=== PATIENT | male | born 1950 | race Caucasian/White ===

== ENCOUNTER 2016-12-24 08:31 | Emergency (ER) | payer OTHER, BC ==
[~2016-12-24] VITALS: Ht 182.9 cm; Wt 101.2 kg
[~2016-12-24 08:31] MED LIST: ASPIR-LOW81 MG PO; B COMPLETE1 EACH PO; BENAZEPRIL HCL10 MG; BENAZEPRIL HCL10 MG PO; CALCITRIOL0.25 MCG; CALCIUM ACETAT667 M2 PO; CARVEDILOL12.5 MG PO; CARVEDILOL25 MG PO; CYANOCOBALAMIN 500 MCG; EPOGEN,PRO2000 UNITS SC; EPOGEN,PRO20000 UNIT SQ; ERGOCALCIF50000 UNIT PO; KAYEXALATE15 GM/60 M PO; LABETALOL HCL200 MG PO; LOPERAMIDE2 M1 PO; MAG-OXIDE400 MG PO; MAGNESIUM400 M1 PO; METHYLDOPA500 MG PO; METOPROLOL TART50 MG; MINOXIDIL2.5 MG PO; NEURONTIN600 MG PO; NIFEDICAL XL30 MG PO; NIFEDIPINE ER60 MG PO; NORCO 5/3251 TABLET PO; NORVASC5 MG PO; PANTOPRAZOLE SO40 MG; PANTOPRAZOLE SO40 MG PO; PRAVASTATIN SOD40 MG; PROTONIX40 MG PO; RENAL VITAMIN0.8 MG PO; RESTORIL15 MG PO; ROCALTROL0.25 MCG PO; SENSIPAR30 MG PO; VITAMIN B COMP1 EACH PO; VITAMIN B-125000 MC1 PO; VITAMIN D; VITAMIN D250000 UNIT PO; ZOFRAN ODT4 MG PO; [UNRECOGNIZED DRUG - OTHER]
[2016-12-24 09:17] LABS: HEMATOCRIT 31.5 % (38.0-50.0); MCH 32.1 PG (29.0-34.0); MCHC 33.3 G/DL (30.0-36.0); MCV 96.3 FL (86-99); MEAN PLAT.VOLUME 9.6 uM^3 (9.0-12.4); PLATELET COUNT 231 K/uL (156-360); RBC DIS.WIDTH-CV 14.9 % (11.8-14.6); RBC DIS.WIDTH-SD 49.1 % (39-53); RED BLOOD COUNT 3.27 M/uL (4.00-5.50); WHITE BLOOD COUNT 5.9 K/uL (4.1-10.2)
[2016-12-24 09:29] LABS: CHLORIDE 100 mEq/L (99-109); POTASSIUM 5.9 mEq/L (3.7-5.4); SODIUM 138 mEq/L (136-147)
[2016-12-24 09:30] LABS: GLUCOSE 113 mg/dL (70-99)
[2016-12-24 09:32] LABS: ANION GAP 18 MEQ/L (2-14)
[2016-12-24 09:34] LABS: GFR ESTIMATE (CALCULATED) 5 mL/min/
[2016-12-24 09:35] LABS: UREA NITROGEN (BUN) 70 mg/dL (9-23)
[2016-12-24 09:39] LABS: TROP-I INTERPRETATION NEGATIVE; TROPONIN-I 0.04 ng/mL (0.0-0.30)
[2016-12-24 12:32] LABS: ANTI-HEPATITIS B CORE (IGM) Nonreactive; HBC IgM INDEX 0.06
[2016-12-24] MEDS ORDERED: PROCARDIA XL30 MG PO (14:12)
[2016-12-24 17:27] VITALS: BP 205/91
[2016-12-25 10:56] LABS: HEPATITIS B SURFACE ANTIBODY Nonreactive
== END 2016-12-24 17:28 | disposition left against medical advice (07) ==
LOC: EME 08:31
PROVIDERS: Emergency Medicine
DX: R06.02 Shortness of breath (principal); R94.31 Abnormal electrocardiogram [ECG] [EKG]; I20.9 Angina pectoris, unspecified; I12.0 Hypertensive chronic kidney disease with stage 5 chronic kidney disease or end stage renal disease; N18.6 End stage renal disease; Z99.2 Dependence on renal dialysis; D63.1 Anemia in chronic kidney disease; E87.5 Hyperkalemia; Z87.891 Personal history of nicotine dependence
CPT/HCPCS: 71020; 80048; 84484; 85027; 86705; 86706; 87340; 93005; 99281; 99284

== ENCOUNTER 2016-12-26 10:48 | Emergency (ER) | payer OTHER, BC ==
[~2016-12-26] VITALS: Ht 182.9 cm; Wt 103.5 kg
[~2016-12-26 10:48] MED LIST changes: +PROCARDIA XL30 MG PO
[2016-12-26 12:39] LABS: EOSINOPHIL (%) 1.6 % (0-5); EOSINOPHIL COUNT 0.1 K/uL (0-0.3); HEMATOCRIT 32.1 % (38.0-50.0); IMMATURE GRANULOCYTE (%) 0.2 % (0.0-0.7); IMMATURE GRANULOCYTE COUNT 0.1 K/uL; LYMPHOCYTE COUNT 0.8 K/uL (1.0-2.8); MCH 31.8 PG (29.0-34.0); MCV 96.4 FL (86-99); MONOCYTE (%) 10.2 % (3-12); MONOCYTE COUNT 0.7 K/uL (0-0.8); NEUTROPHIL (%) 74.9 % (45-76); NEUTROPHIL COUNT 4.8 K/uL (1.8-6.4); PLATELET COUNT 203 K/uL (156-360); RBC DIS.WIDTH-CV 15.1 % (11.8-14.6); RBC DIS.WIDTH-SD 50.8 % (39-53); RED BLOOD COUNT 3.33 M/uL (4.00-5.50); WHITE BLOOD COUNT 6.5 K/uL (4.1-10.2)
[2016-12-26 12:48] LABS: CHLORIDE 100 mEq/L (99-109); POTASSIUM 5.8 mEq/L (3.7-5.4); SODIUM 139 mEq/L (136-147)
[2016-12-26 12:49] LABS: GLUCOSE 118 mg/dL (70-99)
[2016-12-26 12:51] LABS: ANION GAP 17 MEQ/L (2-14)
[2016-12-26 12:53] LABS: GFR ESTIMATE (CALCULATED) 6 mL/min/
[2016-12-26 12:54] LABS: UREA NITROGEN (BUN) 59 mg/dL (9-23)
[2016-12-26 19:27] VITALS: BP 199/95
== END 2016-12-26 19:29 | disposition home or self-care (01) ==
LOC: EME 10:48
PROVIDERS: Emergency Medicine
PROC: 5A1D00Z (ICD-10-PCS; principal; 2016-12-26)
DX: I12.0 Hypertensive chronic kidney disease with stage 5 chronic kidney disease or end stage renal disease (principal); N18.6 End stage renal disease; Z99.2 Dependence on renal dialysis; E87.5 Hyperkalemia; R06.00 Dyspnea, unspecified; Z87.891 Personal history of nicotine dependence; I10 Essential (primary) hypertension; K21.9 Gastro-esophageal reflux disease without esophagitis
CPT/HCPCS: 71010; 80048; 85025; 99281; 99284; J0881; J1270; J1756

== ENCOUNTER 2016-12-28 07:47 | Emergency (ER) | payer OTHER, BC ==
[~2016-12-28] VITALS: Ht 182.9 cm; Wt 99.0 kg
[2016-12-28 08:48] LABS: HEMATOCRIT 30.3 % (38.0-50.0); MCH 32.2 PG (29.0-34.0); MCV 97.4 FL (86-99); MEAN PLAT.VOLUME 9.9 uM^3 (9.0-12.4); PLATELET COUNT 169 K/uL (156-360); RBC DIS.WIDTH-CV 15.6 % (11.8-14.6); RBC DIS.WIDTH-SD 55.7 % (39-53); RED BLOOD COUNT 3.11 M/uL (4.00-5.50); WHITE BLOOD COUNT 5.8 K/uL (4.1-10.2)
[2016-12-28 09:03] LABS: ANION GAP 15 MEQ/L (2-14); CHLORIDE 101 MEQ/L (99-109); SAMPLE HEMOLYSIS CHECK 0; SAMPLE ICTERIC CHECK 0; SAMPLE LIPEMIA CHECK 0; SODIUM 139 MEQ/L (136-147)
[2016-12-28 09:08] LABS: GFR ESTIMATE (CALCULATED) 7 mL/min/; GLUCOSE 96 mg/dL (70-99); UREA NITROGEN (BUN) 45 mg/dL (9-23)
[2016-12-28 13:07] VITALS: BP 181/89
== END 2016-12-28 13:08 | disposition home or self-care (01) ==
LOC: EME 07:47
PROVIDERS: Internal Medicine Nephrology
PROC: 5A1D00Z (ICD-10-PCS; principal; 2016-12-28)
DX: I12.0 Hypertensive chronic kidney disease with stage 5 chronic kidney disease or end stage renal disease (principal); N18.6 End stage renal disease; Z99.2 Dependence on renal dialysis; K21.9 Gastro-esophageal reflux disease without esophagitis; B19.20 Unspecified viral hepatitis C without hepatic coma; Z87.891 Personal history of nicotine dependence
CPT/HCPCS: 80069; 85027; 99281; 99283

== ENCOUNTER 2016-12-31 11:14 | Emergency (ER) | payer OTHER, BC ==
[~2016-12-31] VITALS: Ht 182.9 cm; Wt 99.9 kg
[2016-12-31 14:12] LABS: EOSINOPHIL (%) 1.6 % (0-5); EOSINOPHIL COUNT 0.1 K/uL (0-0.3); HEMATOCRIT 28.9 % (38.0-50.0); IMMATURE GRANULOCYTE (%) 0.5 % (0.0-0.7); LYMPHOCYTE COUNT 0.8 K/uL (1.0-2.8); MCH 32.1 PG (29.0-34.0); MCHC 33.2 G/DL (30.0-36.0); MCV 96.7 FL (86-99); MONOCYTE (%) 11.8 % (3-12); MONOCYTE COUNT 0.7 K/uL (0-0.8); NEUTROPHIL (%) 71.7 % (45-76); PLATELET COUNT 201 K/uL (156-360); RBC DIS.WIDTH-CV 15.5 % (11.8-14.6); RBC DIS.WIDTH-SD 54.5 % (39-53); RED BLOOD COUNT 2.99 M/uL (4.00-5.50); WHITE BLOOD COUNT 5.5 K/uL (4.1-10.2)
[2016-12-31 14:33] LABS: ANION GAP 15 MEQ/L (2-14); CHLORIDE 101 MEQ/L (99-109); GFR ESTIMATE (CALCULATED) 5 mL/min/; GLUCOSE 102 mg/dL (70-99); POTASSIUM 5.2 MEQ/L (3.7-5.4); SAMPLE HEMOLYSIS CHECK 0; SAMPLE ICTERIC CHECK 0; SAMPLE LIPEMIA CHECK 0; SODIUM 139 MEQ/L (136-147); UREA NITROGEN (BUN) 58 mg/dL (9-23)
[2016-12-31 14:45] LABS: ALKALINE PHOSPHATASE 93 IU/L (3-129); TOTAL BILIRUBIN 0.7 MG/DL (0.0-1.0)
[2016-12-31 19:14] VITALS: BP 156/70
== END 2016-12-31 19:15 | disposition home or self-care (01) ==
LOC: EME 11:14
PROVIDERS: Internal Medicine Nephrology
DX: I12.0 Hypertensive chronic kidney disease with stage 5 chronic kidney disease or end stage renal disease (principal); N18.6 End stage renal disease; Z99.2 Dependence on renal dialysis; Z87.891 Personal history of nicotine dependence
CPT/HCPCS: 80048; 80053; 84100; 85025; 99281; 99284; J1270; J1644; J1756

== ENCOUNTER 2017-01-02 11:10 | Emergency (ER) | payer OTHER, BC ==
[~2017-01-02] VITALS: Ht 182.9 cm; Wt 99.2 kg
[2017-01-02 14:22] LABS: HEMATOCRIT 28.7 % (38.0-50.0); MCH 32.3 PG (29.0-34.0); MCHC 32.8 G/DL (30.0-36.0); MCV 98.6 FL (86-99); MEAN PLAT.VOLUME 9.6 uM^3 (9.0-12.4); PLATELET COUNT 185 K/uL (156-360); RBC DIS.WIDTH-CV 16.1 % (11.8-14.6); RBC DIS.WIDTH-SD 56.8 % (39-53); RED BLOOD COUNT 2.91 M/uL (4.00-5.50); WHITE BLOOD COUNT 5.4 K/uL (4.1-10.2)
[2017-01-02 14:30] LABS: ANION GAP 15 MEQ/L (2-14); CHLORIDE 102 MEQ/L (99-109); POTASSIUM 5.1 MEQ/L (3.7-5.4); SAMPLE HEMOLYSIS CHECK 0; SAMPLE ICTERIC CHECK 0; SAMPLE LIPEMIA CHECK 0; SODIUM 143 MEQ/L (136-147)
[2017-01-02 14:38] LABS: EOSINOPHIL COUNT 0.1 K/uL (0-0.3); IMMATURE GRANULOCYTE (%) 0.2 % (0.0-0.7); LYMPHOCYTE COUNT 0.8 K/uL (1.0-2.8); MONOCYTE (%) 13.7 % (3-12); MONOCYTE COUNT 0.7 K/uL (0-0.8); NEUTROPHIL (%) 68.3 % (45-76); NEUTROPHIL COUNT 3.7 K/uL (1.8-6.4)
[2017-01-02 14:39] LABS: GFR ESTIMATE (CALCULATED) 7 mL/min/; GLUCOSE 93 mg/dL (70-99); UREA NITROGEN (BUN) 44 mg/dL (9-23)
[2017-01-02 19:46] VITALS: BP 191/85
== END 2017-01-02 19:47 | disposition home or self-care (01) ==
LOC: EME 11:10
PROVIDERS: Internal Medicine Nephrology
DX: I12.0 Hypertensive chronic kidney disease with stage 5 chronic kidney disease or end stage renal disease (principal); N18.6 End stage renal disease; Z99.2 Dependence on renal dialysis; Z87.891 Personal history of nicotine dependence
CPT/HCPCS: 80069; 85025; 99281; 99283; J0881

== ENCOUNTER 2017-01-04 07:54 | Emergency (ER) | payer OTHER, BC ==
[~2017-01-04] VITALS: Ht 182.9 cm; Wt 98.6 kg
[2017-01-04 09:25] LABS: HEMATOCRIT 30.6 % (38.0-50.0); MCH 31.9 PG (29.0-34.0); MCHC 32.4 G/DL (30.0-36.0); MCV 98.7 FL (86-99); MEAN PLAT.VOLUME 9.7 uM^3 (9.0-12.4); PLATELET COUNT 184 K/uL (156-360); RBC DIS.WIDTH-CV 16.5 % (11.8-14.6); WHITE BLOOD COUNT 5.8 K/uL (4.1-10.2)
[2017-01-04 09:33] LABS: ANION GAP 14 MEQ/L (2-14); CHLORIDE 103 MEQ/L (99-109); POTASSIUM 5.1 MEQ/L (3.7-5.4); SAMPLE HEMOLYSIS CHECK 0; SAMPLE ICTERIC CHECK 0; SAMPLE LIPEMIA CHECK 0; SODIUM 140 MEQ/L (136-147)
[2017-01-04 09:39] LABS: GFR ESTIMATE (CALCULATED) 7 mL/min/; GLUCOSE 100 mg/dL (70-99); UREA NITROGEN (BUN) 38 mg/dL (9-23)
[2017-01-04 13:25] VITALS: BP 184/95
== END 2017-01-04 13:46 | disposition home or self-care (01) ==
LOC: EME 07:54
PROVIDERS: Internal Medicine Nephrology
PROC: 5A1D00Z (ICD-10-PCS; principal; 2017-01-04)
DX: I12.0 Hypertensive chronic kidney disease with stage 5 chronic kidney disease or end stage renal disease (principal); N18.6 End stage renal disease; Z99.2 Dependence on renal dialysis; K21.9 Gastro-esophageal reflux disease without esophagitis; B19.20 Unspecified viral hepatitis C without hepatic coma; Z87.891 Personal history of nicotine dependence
CPT/HCPCS: 80069; 85027; 87340; 99281; 99284; G0257; J1270; J1644; J1756

== ENCOUNTER 2017-01-07 10:04 | Emergency (ER) | payer OTHER, BC ==
[~2017-01-07] VITALS: Ht 182.9 cm; Wt 99.1 kg
[2017-01-07 11:46] LABS: HEMATOCRIT 28.2 % (38.0-50.0); MCH 32.6 PG (29.0-34.0); MCHC 33.3 G/DL (30.0-36.0); MCV 97.9 FL (86-99); MEAN PLAT.VOLUME 9.9 uM^3 (9.0-12.4); PLATELET COUNT 176 K/uL (156-360); RBC DIS.WIDTH-CV 16.5 % (11.8-14.6); RBC DIS.WIDTH-SD 58.9 % (39-53); RED BLOOD COUNT 2.88 M/uL (4.00-5.50); WHITE BLOOD COUNT 5.6 K/uL (4.1-10.2)
[2017-01-07 11:55] LABS: ANION GAP 14 MEQ/L (2-14); CHLORIDE 101 MEQ/L (99-109); POTASSIUM 4.9 MEQ/L (3.7-5.4); SAMPLE HEMOLYSIS CHECK 0; SAMPLE ICTERIC CHECK 0; SAMPLE LIPEMIA CHECK 0; SODIUM 139 MEQ/L (136-147)
[2017-01-07 11:59] LABS: EOSINOPHIL (%) 2.1 % (0-5); EOSINOPHIL COUNT 0.1 K/uL (0-0.3); IMMATURE GRANULOCYTE (%) 0.5 % (0.0-0.7); LYMPHOCYTE COUNT 0.8 K/uL (1.0-2.8); MONOCYTE (%) 3.9 % (3-12); MONOCYTE COUNT 0.2 K/uL (0-0.8); NEUTROPHIL (%) 78.7 % (45-76); NEUTROPHIL COUNT 4.4 K/uL (1.8-6.4)
[2017-01-07 12:02] LABS: GFR ESTIMATE (CALCULATED) 6 mL/min/; GLUCOSE 136 mg/dL (70-99)
[2017-01-07 12:04] LABS: UREA NITROGEN (BUN) 58 mg/dL (9-23)
[2017-01-07 15:33] VITALS: BP 180/79
== END 2017-01-07 15:46 | disposition home or self-care (01) ==
LOC: EME 10:04
PROVIDERS: Internal Medicine Nephrology
PROC: 5A1D00Z (ICD-10-PCS; principal; 2017-01-07)
DX: I12.0 Hypertensive chronic kidney disease with stage 5 chronic kidney disease or end stage renal disease (principal); N18.6 End stage renal disease; Z99.2 Dependence on renal dialysis; K21.9 Gastro-esophageal reflux disease without esophagitis; B19.20 Unspecified viral hepatitis C without hepatic coma; Z87.891 Personal history of nicotine dependence
CPT/HCPCS: 80048; 85025; 99281; 99284; G0257; J1270; J1644; J1756

== ENCOUNTER 2017-01-10 07:20 | Emergency (ER) | payer OTHER, BC ==
[~2017-01-10] VITALS: Ht 185.4 cm; Wt 95.0 kg
[2017-01-10 10:00] LABS: MCH 31.5 PG (29.0-34.0); MCHC 32.3 G/DL (30.0-36.0); MCV 97.8 FL (86-99); MEAN PLAT.VOLUME 9.9 uM^3 (9.0-12.4); PLATELET COUNT 142 K/uL (156-360); RBC DIS.WIDTH-CV 16.6 % (11.8-14.6); RBC DIS.WIDTH-SD 59.1 % (39-53); RED BLOOD COUNT 3.17 M/uL (4.00-5.50); WHITE BLOOD COUNT 5.6 K/uL (4.1-10.2)
[2017-01-10 10:08] LABS: EOSINOPHIL (%) 0.5 % (0-5); IMMATURE GRANULOCYTE (%) 0.2 % (0.0-0.7); LYMPHOCYTE COUNT 0.7 K/uL (1.0-2.8); MONOCYTE (%) 13.2 % (3-12); MONOCYTE COUNT 0.7 K/uL (0-0.8); NEUTROPHIL COUNT 4.1 K/uL (1.8-6.4)
[2017-01-10 10:24] LABS: ANION GAP 20 MEQ/L (2-14); CHLORIDE 97 MEQ/L (99-109); GFR ESTIMATE (CALCULATED) 5 mL/min/; GLUCOSE 88 mg/dL (70-99); POTASSIUM 6.2 MEQ/L (3.7-5.4); SAMPLE HEMOLYSIS CHECK 0; SAMPLE ICTERIC CHECK 0; SAMPLE LIPEMIA CHECK 0; SODIUM 137 MEQ/L (136-147); UREA NITROGEN (BUN) 86 mg/dL (9-23)
[2017-01-10 15:07] LABS: INFLUENZA A VIRAL ANTIGEN POSITIVE; INFLUENZA B VIRAL ANTIGEN NEGATIVE
[2017-01-10 16:11] VITALS: BP 178/86
== END 2017-01-10 16:17 | disposition home or self-care (01) ==
LOC: EME 07:20
PROVIDERS: Internal Medicine Nephrology; Physician Assistant
PROC: 5A1D00Z (ICD-10-PCS; principal; 2017-01-10)
DX: J10.1 Influenza due to other identified influenza virus with other respiratory manifestations (principal); N18.6 End stage renal disease; Z99.2 Dependence on renal dialysis; Z88.0 Allergy status to penicillin
CPT/HCPCS: 71010; 80069; 83605; 85025; 87040; 87502; 99281; 99285; J0881; J1270; J1756; J1885

== ENCOUNTER 2017-01-14 10:19 | Emergency (ER) | payer OTHER, BC | END 2017-01-14 19:48 | disposition home or self-care (01) | LOC: EME 10:19 | PROC: 5A1D00Z (ICD-10-PCS; principal; 2017-01-14) | DX: N18.6 End stage renal disease (principal); Z99.2 Dependence on renal dialysis | CPT/HCPCS: 99281; 99284; J1270; J1756 ==

== ENCOUNTER 2017-01-16 11:43 | Emergency (ER) | payer OTHER, BC ==
[~2017-01-16] VITALS: Ht 182.9 cm; Wt 95.5 kg
[2017-01-16 12:53] LABS: EOSINOPHIL (%) 2.6 % (0-5); EOSINOPHIL COUNT 0.1 K/uL (0-0.3); HEMATOCRIT 29.9 % (38.0-50.0); IMMATURE GRANULOCYTE (%) 1.8 % (0.0-0.7); IMMATURE GRANULOCYTE COUNT 0.1 K/uL; MCH 31.3 PG (29.0-34.0); MCHC 32.4 G/DL (30.0-36.0); MCV 96.5 FL (86-99); MEAN PLAT.VOLUME 10.2 uM^3 (9.0-12.4); MONOCYTE (%) 11.8 % (3-12); MONOCYTE COUNT 0.5 K/uL (0-0.8); NEUTROPHIL (%) 57.4 % (45-76); NEUTROPHIL COUNT 2.3 K/uL (1.8-6.4); PLATELET COUNT 165 K/uL (156-360); RBC DIS.WIDTH-CV 16.6 % (11.8-14.6); RBC DIS.WIDTH-SD 58.8 % (39-53)
[2017-01-16 13:12] LABS: ANION GAP 16 MEQ/L (2-14); CHLORIDE 100 MEQ/L (99-109); GLUCOSE 122 mg/dL (70-99); SAMPLE HEMOLYSIS CHECK 0; SAMPLE ICTERIC CHECK 0; SAMPLE LIPEMIA CHECK 0; SODIUM 140 MEQ/L (136-147); UREA NITROGEN (BUN) 47 mg/dL (9-23)
[2017-01-16 13:27] LABS: WHITE BLOOD COUNT 3.9 K/uL (4.1-10.2)
[2017-01-16 13:28] LABS: GFR ESTIMATE (CALCULATED) 6 mL/min/; POTASSIUM 4.3 MEQ/L (3.7-5.4)
[2017-01-16 17:24] VITALS: BP 139/62
== END 2017-01-16 17:24 | disposition home or self-care (01) ==
LOC: EME 11:43
PROVIDERS: Internal Medicine Nephrology
PROC: 5A1D00Z (ICD-10-PCS; principal; 2017-01-16)
DX: I12.0 Hypertensive chronic kidney disease with stage 5 chronic kidney disease or end stage renal disease (principal); N18.6 End stage renal disease; Z99.2 Dependence on renal dialysis; B19.20 Unspecified viral hepatitis C without hepatic coma; K21.9 Gastro-esophageal reflux disease without esophagitis
CPT/HCPCS: 80069; 85025; 99281; 99283; J0881; J1270; J1756

== ENCOUNTER 2017-01-18 09:25 | Emergency (ER) | payer OTHER, BC ==
[~2017-01-18] VITALS: Ht 182.9 cm; Wt 94.9 kg
[2017-01-18 10:40] LABS: HEMATOCRIT 30.7 % (38.0-50.0); MCH 32.5 PG (29.0-34.0); MCHC 32.9 G/DL (30.0-36.0); MCV 98.7 FL (86-99); MEAN PLAT.VOLUME 9.8 uM^3 (9.0-12.4); PLATELET COUNT 169 K/uL (156-360); RBC DIS.WIDTH-CV 16.8 % (11.8-14.6); RBC DIS.WIDTH-SD 59.3 % (39-53); RED BLOOD COUNT 3.11 M/uL (4.00-5.50); WHITE BLOOD COUNT 4.4 K/uL (4.1-10.2)
[2017-01-18 10:55] LABS: ANION GAP 13 MEQ/L (2-14); CHLORIDE 99 MEQ/L (99-109); POTASSIUM 4.3 MEQ/L (3.7-5.4); SAMPLE HEMOLYSIS CHECK 0; SAMPLE ICTERIC CHECK 0; SAMPLE LIPEMIA CHECK 0; SODIUM 139 MEQ/L (136-147)
[2017-01-18 11:01] LABS: GFR ESTIMATE (CALCULATED) 7 mL/min/; GLUCOSE 87 mg/dL (70-99); UREA NITROGEN (BUN) 34 mg/dL (9-23)
[2017-01-18 15:20] VITALS: BP 134/69
== END 2017-01-18 15:21 | disposition home or self-care (01) ==
LOC: EME 09:25
PROVIDERS: Internal Medicine Nephrology
PROC: 5A1D00Z (ICD-10-PCS; principal; 2017-01-18)
DX: I12.0 Hypertensive chronic kidney disease with stage 5 chronic kidney disease or end stage renal disease (principal); N18.6 End stage renal disease; K21.9 Gastro-esophageal reflux disease without esophagitis; Z99.2 Dependence on renal dialysis; B19.20 Unspecified viral hepatitis C without hepatic coma
CPT/HCPCS: 80069; 85027; 99281; 99285

== ENCOUNTER 2017-01-21 11:28 | Emergency (ER) | payer OTHER, BC ==
[~2017-01-21] VITALS: Ht 182.9 cm; Wt 95.3 kg
[2017-01-21 11:32] VITALS: BP 171/99
[2017-01-21 13:38] LABS: ANION GAP 14 MEQ/L (2-14); CHLORIDE 102 MEQ/L (99-109); POTASSIUM 5.1 MEQ/L (3.7-5.4); SAMPLE HEMOLYSIS CHECK 0; SAMPLE ICTERIC CHECK 0; SAMPLE LIPEMIA CHECK 0; SODIUM 141 MEQ/L (136-147)
[2017-01-21 13:45] LABS: GFR ESTIMATE (CALCULATED) 6 mL/min/; GLUCOSE 84 mg/dL (70-99); UREA NITROGEN (BUN) 46 mg/dL (9-23)
[2017-01-21 13:50] LABS: EOSINOPHIL (%) 1.1 % (0-5); EOSINOPHIL COUNT 0.1 K/uL (0-0.3); HEMATOCRIT 31.3 % (38.0-50.0); IMMATURE GRANULOCYTE (%) 0.3 % (0.0-0.7); LYMPHOCYTE COUNT 1.3 K/uL (1.0-2.8); MCH 31.1 PG (29.0-34.0); MCHC 31.3 G/DL (30.0-36.0); MCV 99.4 FL (86-99); MEAN PLAT.VOLUME 10.2 uM^3 (9.0-12.4); MONOCYTE (%) 12.5 % (3-12); MONOCYTE COUNT 0.9 K/uL (0-0.8); NEUTROPHIL (%) 68.7 % (45-76); NEUTROPHIL COUNT 5.2 K/uL (1.8-6.4); RED BLOOD COUNT 3.15 M/uL (4.00-5.50)
[2017-01-21 13:52] LABS: PLATELET COUNT 237 K/uL (156-360); WHITE BLOOD COUNT 7.5 K/uL (4.1-10.2)
== END 2017-01-21 17:29 | disposition home or self-care (01) ==
LOC: EME 11:28
PROVIDERS: Internal Medicine Nephrology
PROC: 5A1D00Z (ICD-10-PCS; principal; 2017-01-21)
DX: I12.0 Hypertensive chronic kidney disease with stage 5 chronic kidney disease or end stage renal disease (principal); N18.6 End stage renal disease; K21.9 Gastro-esophageal reflux disease without esophagitis; Z99.2 Dependence on renal dialysis; B19.20 Unspecified viral hepatitis C without hepatic coma
CPT/HCPCS: 80069; 85025; 99281; 99283

== ENCOUNTER 2017-01-23 09:34 | Emergency (ER) | payer OTHER, BC ==
[~2017-01-23] VITALS: Ht 182.9 cm; Wt 92.2 kg
[2017-01-23 10:27] LABS: HEMATOCRIT 30.7 % (38.0-50.0); MCH 32.2 PG (29.0-34.0); MCHC 32.2 G/DL (30.0-36.0); MEAN PLAT.VOLUME 9.5 uM^3 (9.0-12.4); PLATELET COUNT 237 K/uL (156-360); RBC DIS.WIDTH-CV 16.6 % (11.8-14.6); RBC DIS.WIDTH-SD 60.1 % (39-53); RED BLOOD COUNT 3.07 M/uL (4.00-5.50); WHITE BLOOD COUNT 6.2 K/uL (4.1-10.2)
[2017-01-23 10:31] LABS: EOSINOPHIL (%) 1.1 % (0-5); EOSINOPHIL COUNT 0.1 K/uL (0-0.3); IMMATURE GRANULOCYTE (%) 0.6 % (0.0-0.7); LYMPHOCYTE COUNT 1.1 K/uL (1.0-2.8); MONOCYTE (%) 15.1 % (3-12); MONOCYTE COUNT 0.9 K/uL (0-0.8); NEUTROPHIL (%) 65.2 % (45-76)
[2017-01-23 10:46] LABS: ANION GAP 11 MEQ/L (2-14); CHLORIDE 100 MEQ/L (99-109); SAMPLE HEMOLYSIS CHECK 0; SAMPLE ICTERIC CHECK 0; SAMPLE LIPEMIA CHECK 0; SODIUM 139 MEQ/L (136-147)
[2017-01-23 10:53] LABS: GFR ESTIMATE (CALCULATED) 7 mL/min/; GLUCOSE 84 mg/dL (70-99); UREA NITROGEN (BUN) 38 mg/dL (9-23)
[2017-01-23 15:08] VITALS: BP 151/70
== END 2017-01-23 15:31 | disposition home or self-care (01) ==
LOC: EME 09:34
PROVIDERS: Internal Medicine Nephrology
PROC: 5A1D00Z (ICD-10-PCS; principal; 2017-01-23)
DX: N18.6 End stage renal disease (principal); Z49.31 Encounter for adequacy testing for hemodialysis; Z99.2 Dependence on renal dialysis; Z88.0 Allergy status to penicillin
CPT/HCPCS: 80069; 85025; 99281; 99284; G0257; J0881; J1270; J1756

== ENCOUNTER 2017-01-25 10:18 | Emergency (ER) | payer OTHER, BC ==
[~2017-01-25] VITALS: Ht 182.9 cm; Wt 93.6 kg
[2017-01-25] MEDS ORDERED: ACULAR 0.5100 DROP/5 RIGHT EYE (11:11)
[2017-01-25 16:12] VITALS: BP 161/71
== END 2017-01-25 16:14 | disposition home or self-care (01) ==
LOC: EME 10:18
PROC: 5A1D00Z (ICD-10-PCS; principal; 2017-01-25)
DX: N18.6 End stage renal disease (principal); Z99.2 Dependence on renal dialysis
CPT/HCPCS: 99281; 99284; G0257

== ENCOUNTER 2017-01-28 13:51 | Emergency (ER) | payer OTHER, BC ==
[~2017-01-28] VITALS: Ht 182.9 cm; Wt 83.0 kg
[~2017-01-28 13:51] MED LIST changes: +ACULAR 0.5100 DROP/5 RIGHT EYE
[2017-01-28 15:08] LABS: HEMATOCRIT 31.4 % (38.0-50.0); MCHC 31.2 G/DL (30.0-36.0); MCV 99.4 FL (86-99); MEAN PLAT.VOLUME 9.4 uM^3 (9.0-12.4); PLATELET COUNT 227 K/uL (156-360); RBC DIS.WIDTH-CV 16.3 % (11.8-14.6); RBC DIS.WIDTH-SD 59.3 % (39-53); RED BLOOD COUNT 3.16 M/uL (4.00-5.50); WHITE BLOOD COUNT 6.1 K/uL (4.1-10.2)
[2017-01-28 15:47] LABS: ANION GAP 15 MEQ/L (2-14); CHLORIDE 97 MEQ/L (99-109); GFR ESTIMATE (CALCULATED) 6 mL/min/; GLUCOSE 105 mg/dL (70-99); SAMPLE HEMOLYSIS CHECK 0; SAMPLE ICTERIC CHECK 0; SAMPLE LIPEMIA CHECK 0; SODIUM 138 MEQ/L (136-147); UREA NITROGEN (BUN) 44 mg/dL (9-23)
[2017-01-28 16:04] LABS: HBSG INDEX 0.19
[2017-01-28 19:13] VITALS: BP 166/72
== END 2017-01-28 19:14 | disposition home or self-care (01) ==
LOC: EME 13:51
PROVIDERS: Internal Medicine Nephrology
PROC: 5A1D00Z (ICD-10-PCS; principal; 2017-01-28)
DX: Z76.89 Persons encountering health services in other specified circumstances (principal); I12.0 Hypertensive chronic kidney disease with stage 5 chronic kidney disease or end stage renal disease; N18.6 End stage renal disease; Z99.2 Dependence on renal dialysis
CPT/HCPCS: 80069; 85027; 86707 90; 87340; 99281; 99284; G0257

== ENCOUNTER 2017-01-30 08:50 | Emergency (ER) | payer OTHER, BC ==
[~2017-01-30] VITALS: Ht 182.9 cm; Wt 95.5 kg
[2017-01-30 11:15] LABS: MCV 100.3 FL (86-99)
[2017-01-30 15:03] VITALS: BP 176/72
== END 2017-01-30 15:05 | disposition home or self-care (01) ==
LOC: EME 08:50
PROVIDERS: Internal Medicine Nephrology
DX: M54.2 Cervicalgia (principal); I12.0 Hypertensive chronic kidney disease with stage 5 chronic kidney disease or end stage renal disease; N18.6 End stage renal disease; Z99.2 Dependence on renal dialysis
CPT/HCPCS: 85014; 85018; 99281; 99284; G0257; J0881; J1756

== ENCOUNTER 2017-02-01 08:41 | Emergency (ER) | payer OTHER, BC ==
[~2017-02-01] VITALS: Ht 182.9 cm; Wt 95.8 kg
[2017-02-01 13:51] VITALS: BP 165/73
== END 2017-02-01 12:40 | disposition home or self-care (01) ==
LOC: EME 08:41
DX: I12.0 Hypertensive chronic kidney disease with stage 5 chronic kidney disease or end stage renal disease (principal); N18.6 End stage renal disease; Z99.2 Dependence on renal dialysis
CPT/HCPCS: 99281; 99283; G0257

== ENCOUNTER 2017-02-05 14:41 | Emergency (ER) | payer OTHER, BC ==
[~2017-02-05] VITALS: Ht 182.9 cm; Wt 97.2 kg
[2017-02-05 18:17] LABS: HEMATOCRIT 30.8 % (38.0-50.0); MCH 32.7 PG (29.0-34.0); MCHC 32.8 G/DL (30.0-36.0); MCV 99.7 FL (86-99); MEAN PLAT.VOLUME 9.5 uM^3 (9.0-12.4); PLATELET COUNT 185 K/uL (156-360); RBC DIS.WIDTH-CV 16.2 % (11.8-14.6); RBC DIS.WIDTH-SD 58.7 % (39-53); RED BLOOD COUNT 3.09 M/uL (4.00-5.50); WHITE BLOOD COUNT 5.9 K/uL (4.1-10.2)
[2017-02-05 18:33] LABS: ANION GAP 16 MEQ/L (2-14); CHLORIDE 101 MEQ/L (99-109); POTASSIUM 5.9 MEQ/L (3.7-5.4); SAMPLE HEMOLYSIS CHECK 0; SAMPLE ICTERIC CHECK 0; SAMPLE LIPEMIA CHECK 0; SODIUM 138 MEQ/L (136-147)
[2017-02-05 18:38] LABS: GFR ESTIMATE (CALCULATED) 6 mL/min/; GLUCOSE 88 mg/dL (70-99); UREA NITROGEN (BUN) 57 mg/dL (9-23)
[2017-02-05 22:02] VITALS: BP 173/74
== END 2017-02-05 22:04 | disposition home or self-care (01) ==
LOC: EME 14:41
PROVIDERS: Internal Medicine Nephrology
DX: N17.9 Acute kidney failure, unspecified (principal); I12.0 Hypertensive chronic kidney disease with stage 5 chronic kidney disease or end stage renal disease; N18.6 End stage renal disease; Z99.2 Dependence on renal dialysis; R10.9 Unspecified abdominal pain; R14.0 Abdominal distension (gaseous); K21.9 Gastro-esophageal reflux disease without esophagitis
CPT/HCPCS: 80069; 85027; 99281; 99284; G0257; J0881; J1756

== ENCOUNTER 2017-02-08 07:43 | Emergency (ER) | payer OTHER, BC ==
[~2017-02-08] VITALS: Ht 182.9 cm; Wt 95.9 kg
[2017-02-08] MEDS ORDERED: VALIUM5 MG PO (08:05)
[2017-02-08 18:49] VITALS: BP 189/79
== END 2017-02-08 18:50 | disposition home or self-care (01) ==
LOC: EME 07:43
PROVIDERS: Internal Medicine Nephrology
DX: I12.0 Hypertensive chronic kidney disease with stage 5 chronic kidney disease or end stage renal disease (principal); N18.6 End stage renal disease; Z99.2 Dependence on renal dialysis; M54.5 Low back pain; M62.830 Muscle spasm of back; M25.511 Pain in right shoulder
CPT/HCPCS: 87340; 99281; 99284; G0257

== ENCOUNTER 2017-02-11 08:52 | Emergency (ER) | payer OTHER, BC ==
[~2017-02-11] VITALS: Ht 182.9 cm; Wt 96.3 kg
[~2017-02-11 08:52] MED LIST changes: +VALIUM5 MG PO
[2017-02-11 09:02] VITALS: BP 162/95
[2017-02-11 10:25] LABS: BASOPHIL COUNT 0.1 K/uL (0-0.1); EOSINOPHIL (%) 5.3 % (0-5); EOSINOPHIL COUNT 0.3 K/uL (0-0.3); HEMATOCRIT 33.5 % (38.0-50.0); IMMATURE GRANULOCYTE (%) 0.5 % (0.0-0.7); INSTRUMENT ABS NEUTROPHIL CT 4.1 K/uL; LYMPHOCYTE COUNT 0.9 K/uL (1.0-2.8); MCH 32.5 PG (29.0-34.0); MCHC 31.9 G/DL (30.0-36.0); MCV 101.8 FL (86-99); MEAN PLAT.VOLUME 9.9 uM^3 (9.0-12.4); MONOCYTE (%) 11.4 % (3-12); MONOCYTE COUNT 0.7 K/uL (0-0.8); NEUTROPHIL (%) 67.7 % (45-76); NEUTROPHIL COUNT 4.1 K/uL (1.8-6.4); PLATELET COUNT 195 K/uL (156-360); RBC DIS.WIDTH-CV 16.9 % (11.8-14.6); RBC DIS.WIDTH-SD 63.1 % (39-53); RED BLOOD COUNT 3.29 M/uL (4.00-5.50)
== END 2017-02-11 15:24 | disposition home or self-care (01) ==
LOC: EME 08:52
PROVIDERS: Internal Medicine Nephrology
DX: I12.0 Hypertensive chronic kidney disease with stage 5 chronic kidney disease or end stage renal disease (principal); N18.6 End stage renal disease; Z99.2 Dependence on renal dialysis; R06.02 Shortness of breath; M54.2 Cervicalgia
CPT/HCPCS: 85025; 99281; 99283

== ENCOUNTER → 2017-04-23 | Outpatient (CLI) | payer OTHER, BC ==
[2017-04-23 08:29] LABS: BASE EXCESS 3.2 mEq/L (-3 to +3); BICARBONATE 27.9 mEq/L (22-26); CARBOXY HGB 0.2 % (0-5); COMMENTS - BLOOD GASES A+C+; METHEMOGLOBIN 0.2 % (0-1.5); PCO2 42 mm Hg (35-45); PO2 73 mm Hg (80-100); SITE RR; pH 7.43 (7.35-7.45)
== END | disposition home or self-care (01) ==
LOC: RES 08:00
PROVIDERS: Internal Medicine Pulmonary Disease
DX: J44.9 Chronic obstructive pulmonary disease, unspecified (principal)
CPT/HCPCS: 36600; 82803; 94060; 94726; 94729

== ENCOUNTER 2017-06-09 22:39 | Emergency (ER) | payer OTHER, BC ==
[~2017-06-09] VITALS: Ht 182.9 cm; Wt 95.1 kg
[2017-06-10 00:16] LABS: HEMATOCRIT 30.5 % (38.0-50.0); MCH 30.6 PG (29.0-34.0); MCHC 33.1 G/DL (30.0-36.0); MCV 92.4 FL (86-99); MEAN PLAT.VOLUME 8.7 uM^3 (9.0-12.4); PLATELET COUNT 252 K/uL (156-360); RBC DIS.WIDTH-CV 13.7 % (11.8-14.6); RBC DIS.WIDTH-SD 46.9 % (39-53); WHITE BLOOD COUNT 7.8 K/uL (4.1-10.2)
[2017-06-10 00:25] LABS: CHLORIDE 101 mEq/L (99-109); POTASSIUM 4.7 mEq/L (3.7-5.4); SODIUM 141 mEq/L (136-147)
[2017-06-10 00:27] LABS: GLUCOSE 94 mg/dL (70-99)
[2017-06-10 00:29] LABS: ANION GAP 17 MEQ/L (2-14); TOTAL BILIRUBIN 0.7 mg/dL (0.0-1.0)
[2017-06-10 00:31] LABS: ALKALINE PHOSPHATASE 65 IU/L (3-129); GFR ESTIMATE (CALCULATED) 6 mL/min/
[2017-06-10 00:32] LABS: UREA NITROGEN (BUN) 45 mg/dL (9-23)
[2017-06-10] MEDS ORDERED: CIPRO500 MG PO (02:12)
[2017-06-10] MEDS ORDERED: FLAGYL500 MG PO (02:12)
[2017-06-10] MEDS ORDERED: ZOFRAN4 MG PO (02:17)
[2017-06-10] MEDS ORDERED: PERCOCET 5/31 TABLET PO (02:23)
[2017-06-10 02:34] VITALS: BP 134/71
== END 2017-06-10 02:35 | disposition home or self-care (01) ==
LOC: EME 22:39
DX: K52.9 Noninfective gastroenteritis and colitis, unspecified (principal); K92.1 Melena; K57.30 Diverticulosis of large intestine without perforation or abscess without bleeding; I12.0 Hypertensive chronic kidney disease with stage 5 chronic kidney disease or end stage renal disease; N18.6 End stage renal disease; Z99.2 Dependence on renal dialysis; K74.60 Unspecified cirrhosis of liver; Z88.0 Allergy status to penicillin
CPT/HCPCS: 74177; 80053; 81003; 83690; 85027; 99281; 99285; J2270; J2405

== ENCOUNTER 2018-01-28 11:57 | Day surgery (SDC) | payer OTHER, BC ==
[~2018-01-28] VITALS: Ht 182.9 cm; Wt 93.0 kg
[~2018-01-28 11:57] MED LIST changes: +APRESOLINE50 MG PO; +CATAPRES-TTS 21 EACH TD; +CIPRO500 MG PO; +DIALYVITE 801 TABLET PO; +FLAGYL500 MG PO; +IMDUR30 MG PO; +IMDUR60 MG PO; +LONITEN10 MG PO; +LOPRESSOR50 MG PO; +NON-ASPIRIN PA500 M1 PO; +PERCOCET 5/31 TABLET PO; +ROCALTROL0.5 MCG PO; +VITAMIN B-12500 MC3 PO; +ZOFRAN4 MG PO
[2018-01-28 12:28] LABS: HEMOGLOBIN 13.2 G/DL (12.5-16.6); MCH 31.1 PG (29.0-34.0); MCV 94.1 FL (86-99); PLATELET COUNT 231 K/uL (156-360); RBC DIS.WIDTH-SD 51.3 % (39-53); RED BLOOD COUNT 4.25 M/uL (4.00-5.50); WHITE BLOOD COUNT 5.7 K/uL (4.1-10.2)
[2018-01-28 12:41] VITALS: BP 139/63
[2018-01-28 13:03] LABS: CHLORIDE 99 MEQ/L (99-109); CREATININE 7.2 MG/DL (0.6-1.3); GFR ESTIMATE (CALCULATED) 8 mL/min/ (58.99-99999); GLUCOSE 89 mg/dL (70-99); POTASSIUM 4.8 MEQ/L (3.7-5.4); SODIUM 139 MEQ/L (136-147); UREA NITROGEN (BUN) 34 mg/dL (9-23)
[2018-01-28 17:40] VITALS: BP 131/62
[2018-01-28 18:20] VITALS: BP 132/68
== END 2018-01-28 18:39 | disposition home or self-care (01) ==
LOC: SDC 11:57
PROVIDERS: Surgery
DX: T82.41XA Breakdown (mechanical) of vascular dialysis catheter, initial encounter (principal); Y83.2 Surgical operation with anastomosis, bypass or graft as the cause of abnormal reaction of the patient, or of later complication, without mention of misadventure at the time of the procedure; I12.0 Hypertensive chronic kidney disease with stage 5 chronic kidney disease or end stage renal disease; N18.6 End stage renal disease; Z99.2 Dependence on renal dialysis; Z87.891 Personal history of nicotine dependence
CPT/HCPCS: 80048; 85027; C1725; C1769; C1894; J1644; J2250; J2405; J2720; J3010

== ENCOUNTER 2018-02-07 14:58 | Emergency (ER) | payer OTHER, BC ==
[~2018-02-07] VITALS: Ht 182.9 cm; Wt 91.7 kg
[2018-02-07 15:29] LABS: MCH 31.1 PG (29.0-34.0); MCHC 34.2 G/DL (30.0-36.0); MCV 90.9 FL (86-99); PLATELET COUNT 212 K/uL (156-360); RBC DIS.WIDTH-SD 47.2 % (39-53); RED BLOOD COUNT 4.18 M/uL (4.00-5.50); WHITE BLOOD COUNT 4.9 K/uL (4.1-10.2)
[2018-02-07 15:34] LABS: INTER. NORMALIZED RATIO 1.1
[2018-02-07 15:37] LABS: CHLORIDE 99 mEq/L (99-109); SODIUM 140 mEq/L (136-147)
[2018-02-07 15:39] LABS: GLUCOSE 115 mg/dL (70-99)
[2018-02-07 15:43] LABS: CREATININE 5.7 mg/dL (0.6-1.3); GFR ESTIMATE (CALCULATED) 11 mL/min/ (58.99-99999)
[2018-02-07 15:44] LABS: UREA NITROGEN (BUN) 24 mg/dL (9-23)
[2018-02-07] MEDS ORDERED: LEVAQUIN750 MG PO (19:29)
[2018-02-07] MEDS ORDERED: OXYCODONE HCL5 MG PO (19:29)
[2018-02-07 19:52] VITALS: BP 163/70
== END 2018-02-07 19:54 | disposition home or self-care (01) ==
LOC: EME 14:58
PROVIDERS: Emergency Medicine
DX: T82.898A Other specified complication of vascular prosthetic devices, implants and grafts, initial encounter (principal); J20.9 Acute bronchitis, unspecified; Z99.2 Dependence on renal dialysis; N18.6 End stage renal disease; B19.20 Unspecified viral hepatitis C without hepatic coma; F32.9 Major depressive disorder, single episode, unspecified; Z88.0 Allergy status to penicillin; Z88.8 Allergy status to other drugs, medicaments and biological substances
CPT/HCPCS: 71046; 80048; 85027; 85610; 93971; 99281; 99284